=== PATIENT | male | born 1940 | race Caucasian/White ===

== ENCOUNTER 2017-07-17 11:12 | Emergency (ER) | payer MEDICARE, OTHER ==
[2017-07-17 13:44] LABS: Bilirubin Negative (Negative); Blood, Urine Large (Negative); Glucose, Urine (Dipstick) Negative (Negative); Ketone, Urine Negative (Negative); Nitrite Positive (Negative); Protein, Urine (Dipstick) 100 mg/dL (Neg-Trace)
[2017-07-17 13:46] LABS: Bacteria/HPF 4+ HPF (None Seen); Squamous Epithelial 0-3 HPF (0-3)
[2017-07-17 14:13] LABS: Hyaline Casts/LPF NONE SEEN LPF (0-3 Hyaline); RBC/HPF 21-50 HPF (0-3); Yeast-All Forms None Seen HPF (None Seen)
[2017-07-17 14:14] LABS: #Eosinphils 0.1 thou/uL (0.0-0.7); #Lymphocytes 1.2 thou/uL (1.20-3.40); #Monocytes 0.6 thou/uL (0.11-0.59); #Neutrophils 7.5 thou/uL (1.40-6.50); %Basophils 0.1 % (0.0-1.0); %Lymphocytes 12.6 % (21.0-51.0); %Monocytes 6.3 % (0.0-10.0); Hematocrit 41.2 % (42.0-52.0); Mean Platelet Volume 8.9 fL (7.4-10.4); Red Blood Cell (RBC) Count 4.24 mill/uL (4.70-6.10); White Blood Cell (WBC) Count 9.4 thou/uL (4.8-10.8)
[2017-07-17 14:16] LABS: ALT (SGPT) 16 U/L (8-55); AST (SGOT) 15 U/L (5-34); Alkaline Phosphatase 86 U/L (40-150); Anion Gap 10 mmol/L (10-20); BUN (Urea Nitrogen) 14 mg/dL (8.4-25.7); Bilirubin, Total 0.4 mg/dL (0.2-1.2); Calc. Creatinine Clearance 0 mL/min (70-130); Calcium 9.3 mg/dL (7.8-10.44); Carbon Dioxide 35 mmol/L (23-31); Chloride 101 mmol/L (98-107); Estimated GFR-MDRD 56; Globulin 2.5 g/dL (2.4-3.5)
[2017-07-17 14:17] LABS: Digoxin 0.65 ng/mL (0.8-2.0)
[2017-07-17] MEDS ORDERED: Ciprofloxacin 500 MG TAB ONE (14:39)
== END 2017-07-17 14:47 | disposition home or self-care (01) ==
LOC: ERS 11:12
DX: N39.0 Urinary tract infection, site not specified (principal); I49.9 Cardiac arrhythmia, unspecified
CPT/HCPCS: 36415; 80053; 80162; 81003; 81015; 85025; 99283

== ENCOUNTER 2017-07-26 18:29 | Emergency (ER) | payer MEDICARE, OTHER ==
[~2017-07-26 18:29] MED LIST: ISOVUE-370 76%-LOCM 1 ML ONE
[2017-07-26 19:10] LABS: #Basophils 0.1 thou/uL (0.0-0.2); #Eosinphils 0.1 thou/uL (0.0-0.7); #Lymphocytes 1.2 thou/uL (1.20-3.40); #Monocytes 0.7 thou/uL (0.11-0.59); %Basophils 0.7 % (0.0-1.0); %Eosinophils 1.2 % (0.0-10.0); %Lymphocytes 14.6 % (21.0-51.0); %Monocytes 8.4 % (0.0-10.0); Hematocrit 39.5 % (42.0-52.0); Mean Platelet Volume 9.1 fL (7.4-10.4)
[2017-07-26 19:31] LABS: ALT (SGPT) 9 U/L (8-55); AST (SGOT) 13 U/L (5-34); Alkaline Phosphatase 77 U/L (40-150); Anion Gap 11 mmol/L (10-20); BUN (Urea Nitrogen) 17 mg/dL (8.4-25.7); Bilirubin, Total 0.6 mg/dL (0.2-1.2); Calc. Creatinine Clearance 0 mL/min (70-130); Calcium 9.1 mg/dL (7.8-10.44); Carbon Dioxide 31 mmol/L (23-31); Chloride 102 mmol/L (98-107); Estimated GFR-MDRD 77; Globulin 2.5 g/dL (2.4-3.5); Lipase 4 U/L (8-78)
--- NOTE | 2017-07-26 20:13 | CT ---
CT ABDOMEN AND PELVIS WITH IV CONTRAST: 07/26/17 HISTORY: Abdominal pain. Swelling. Recent surgery for hiatal hernia. FINDINGS: Bilateral pleural fluid and basilar atelectasis are present, right greater than left. There are cysts within the hepatic parenchyma. Stranding and a small amount of fluid throughout the upper abdomen ar e consistent with recent surgery. Urinary bladder is decompressed by Bridges catheter. Prostate gland i s enlarged. Stool is present throughout the colon and rectum with mild distention of the rectum. Ther e are prominent degenerative changes of the lumbar spine. Lack of oral contrast limits evaluation of the bowel. There is no evidence of significant obstruction . No abscess collections are reliably demonstrated. There is calcification in the arterial structures. Nonspecific lymph nodes are scattered throughout t he retroperitoneum. IMPRESSION: 1. Recent postoperative changes of the upper abdomen without complication apparent. Bilateral pl eural fluid and basilar atelectasis remain. 2. Atherosclerosis. 3. Enlarged prostate gland. 4. Constipation. No evidence of small bowel obstruction. POS: [facility]
[2017-07-26] MEDS ORDERED: Fleet Enema 133 ML BOT FS SCH (20:30)
[2017-07-26 20:54] LABS: Bilirubin Negative (Negative); Blood, Urine Large (Negative); Glucose, Urine (Dipstick) Negative (Negative); Ketone, Urine Trace mg/dL (Negative); Nitrite Negative (Negative); Protein, Urine (Dipstick) 100 mg/dL (Neg-Trace)
[2017-07-26 20:56] LABS: Bacteria/HPF None Seen HPF (None Seen); RBC/HPF GREATER THAN 50-TNTC HPF (0-3); Squamous Epithelial 0-3 HPF (0-3); WBC/HPF 21-50 HPF (0-3)
[2017-07-26 21:02] LABS: Hyaline Casts/LPF 0-3 HYALINE CAST LPF (0-3 Hyaline); Yeast-All Forms None Seen HPF (None Seen)
--- NOTE | 2017-07-26 21:10 | ULT ---
LEFT LOWER EXTREMITY VENOUS DUPLEX SONOGRAM: 07/26/17 HISTORY: Left leg pain and edema. FINDINGS: The left common femoral vein and greater saphenous junction were evaluated along with the femoral, de ep femoral, popliteal, and posterior tibial veins. There is good color and spectral doppler flow, com pression, and augmentation. IMPRESSION: No sonographic evidence of DVT within the left lower extremity. POS: [facility]
== END 2017-07-26 23:23 | disposition home or self-care (01) ==
LOC: ERS 18:29
DX: K59.00 Constipation, unspecified (principal); R33.9 Retention of urine, unspecified
CPT/HCPCS: 74177; 80053; 81003; 81015; 83690; 85025

== ENCOUNTER 2017-07-28 11:51 | Emergency (ER) | payer MEDICARE, OTHER ==
[2017-07-28 12:36] LABS: #Eosinphils 0.1 thou/uL (0.0-0.7); #Lymphocytes 0.8 thou/uL (1.20-3.40); #Monocytes 0.6 thou/uL (0.11-0.59); #Neutrophils 6.6 thou/uL (1.40-6.50); %Basophils 0.1 % (0.0-1.0); %Lymphocytes 10.2 % (21.0-51.0); %Monocytes 7.4 % (0.0-10.0); Hematocrit 37.7 % (42.0-52.0); Mean Platelet Volume 9.3 fL (7.4-10.4); Red Blood Cell (RBC) Count 3.95 mill/uL (4.70-6.10); White Blood Cell (WBC) Count 8.1 thou/uL (4.8-10.8)
[2017-07-28 13:00] LABS: ALT (SGPT) 9 U/L (8-55); AST (SGOT) 13 U/L (5-34); Alkaline Phosphatase 70 U/L (40-150); Anion Gap 9 mmol/L (10-20); BUN (Urea Nitrogen) 14 mg/dL (8.4-25.7); Bilirubin, Total 0.9 mg/dL (0.2-1.2); Calc. Creatinine Clearance 0 mL/min (70-130); Calcium 8.8 mg/dL (7.8-10.44); Carbon Dioxide 32 mmol/L (23-31); Chloride 100 mmol/L (98-107); Estimated GFR-MDRD 69; Globulin 2.3 g/dL (2.4-3.5); Lipase Less than 4 U/L (8-78); Protein, Total 5.5 g/dL (5.8-8.1)
[2017-07-28 13:18] LABS: Bilirubin Moderate (Negative); Blood, Urine Large (Negative); Glucose, Urine (Dipstick) Negative (Negative); Ketone, Urine Trace mg/dL (Negative); Nitrite Positive (Negative); Protein, Urine (Dipstick) > or equal to 300 mg/dL (Neg-Trace)
[2017-07-28 13:22] LABS: RBC/HPF 21-50 HPF (0-3)
[2017-07-28 13:23] LABS: Bacteria/HPF 2+ HPF (None Seen); Hyaline Casts/LPF NONE SEEN LPF (0-3 Hyaline); Yeast-All Forms 4+ HPF (None Seen)
[2017-07-28] MEDS ORDERED: cefTRIAXone\\ROCEPHIN 1 GM VIAL IM SCH (14:30)
[2017-07-28] MEDS ORDERED: Lidocaine 1% PF 5 ML VIAL FS SCH (14:30)
[2017-07-28] MEDS ORDERED: Lidocaine 1% PF 5 ML VIAL ONE (14:55)
== END 2017-07-28 15:40 | disposition home or self-care (01) ==
LOC: ERS 11:51
DX: N30.01 Acute cystitis with hematuria (principal); I49.9 Cardiac arrhythmia, unspecified
CPT/HCPCS: 36415; 80053; 83690; 85025; 87077; 87086; 87186; 96372; J0696; J2001

== ENCOUNTER 2017-07-28 19:28 | Emergency (ER) | payer MEDICARE, OTHER | END 2017-07-28 22:35 | disposition home or self-care (01) | LOC: ERS 19:28 | DX: N30.01 Acute cystitis with hematuria (principal); I49.9 Cardiac arrhythmia, unspecified | CPT/HCPCS: 51700 ==